=== PATIENT | female | born 1965 | race Caucasian/White ===

== ENCOUNTER 2021-03-08 15:19 | Emergency (ER) | payer OTHER ==
[~2021-03-08 15:19] MED LIST: ENSURE HIGH PR237 ML PO; GABAPENTIN400 MG PO; HYDROCHLOROTHIA25 MG PO; KLONOPIN1 MG PO; NORVASC10 MG PO; PRINIVIL10 MG PO; SUBOXONE 8 MG-1 EACH SL; ZOFRAN4 MG PO
[2021-03-08 17:48] LABS: HEMOGLOBIN 14.5 gm/dl (12.3-15.3); RED BLOOD COUNT 4.78 M/UL (4.00-5.10); WHITE BLOOD COUNT 8.7 K/UL (4.5-11.0)
[2021-03-08 18:20] LABS: BUN/CREATININE RATIO 26 (0-10)
== END 2021-03-08 20:07 | disposition home or self-care (01) ==
LOC: ER1 15:19
PROVIDERS: Physician Assistant Medical
DX: S22.42XA Multiple fractures of ribs, left side, initial encounter for closed fracture (principal); K21.9 Gastro-esophageal reflux disease without esophagitis; R55 Syncope and collapse; I10 Essential (primary) hypertension; Z86.73 Personal history of transient ischemic attack (TIA), and cerebral infarction without residual deficits; F17.210 Nicotine dependence, cigarettes, uncomplicated; Z90.710 Acquired absence of both cervix and uterus; Z79.899 Other long term (current) drug therapy; W01.0XXA Fall on same level from slipping, tripping and stumbling without subsequent striking against object, initial encounter; Y92.009 Unspecified place in unspecified non-institutional (private) residence as the place of occurrence of the external cause
CPT/HCPCS: 71111; 80053; 83690; 85025; 99284; Q9967